=== PATIENT | male | born 1955 ===

== ENCOUNTER 2020-12-26 14:41 | Emergency (ER) | payer SELFPAY ==
[2020-12-26 15:12] VITALS: BP 132/70
--- NOTE | 2020-12-26 15:30 | Emergency Department Report ---
ED Dizziness HPI - General Chief Complaint: Dizziness Stated Complaint: BODY ACHES Time Seen by Provider: 12/26/20 15:17 Source: patient Mode of arrival: Ambulatory Limitations: No Limitations - History of Present Illness Initial Comments: 65 year old male with past medical hx of parkinsons and DM was brought to the ER today with his niece with complaints of dizziness. Niece states that [place] [facility] [place] She states that patient has been complaining about feeling dizzy for the past 2 to 3 weeks. She states that is worse when he stands. She states that he also been complaining of intermittent headache when he feels dizzy. She also states that has been complaining of "pain in his bones" more so in his lower back pain over the past 1 week. She denies any particular injury or trauma. His back pain is worse with Patient reports that he did have similar symptoms before in the past but was milder, he did [place] [facility] [place] medications and "a shot" after which improved but then he started again about a week ago. He reports numbness in his feet but this is from his diabetes. He states that his symptoms have intermittent episodes of incontinence but this has been since has been diabetic nothing worsens the back pain. He denies any worsening lower extremity numbness or tingling. He denies any associate abdominal pain, UTI symptoms, saddle anesthesia or focal weakness. They deny any vision changes or speech changes. He also denies any chest pain, SOB, nausea, vomiting, diarrhea. She denies any syncope or near syncope. The niece reports that she took patient to a regular primary care doctor when he first arrived. She states that they did do basic lab work, and found that his A1C was 9.1 and switched him from oral diabetic meds to insulin. He was also prescribed gabapentin, given a refill on his levodopa and also given Flexeril. She does admit that since patient has been taking the Flexeril she noticed as that is when he is in complaint of feeling the dizziness. MD Complaint: dizziness - Related Data Previous Rx's Medication Instructions Recorded Last Taken Type Acetaminophen [Acetaminophen 8 650 mg PO Q8H #30 tablet.er 12/26/20 Unknown Rx Hour] Allergies Allergy/AdvReac Type Severity Reaction Status Date / Time No Known Allergies Allergy Verified 12/26/20 15:13 ED Review of Systems ROS: Stated complaint: BODY ACHES Other details as noted in HPI Comment: All other systems reviewed and negative Constitutional: denies: chills, diaphoresis, fever, malaise, weakness Eyes: denies: eye pain, eye discharge, vision change ENT: denies: ear pain, throat pain, dental pain, hearing loss, epistaxis, congestion Respiratory: denies: cough, orthopnea, shortness of breath, wheezing Cardiovascular: denies: chest pain, palpitations Gastrointestinal: denies: abdominal pain, nausea, vomiting, diarrhea, constipation, hematemesis, hematochezia Genitourinary: denies: urgency, dysuria, frequency, hematuria, discharge, testicular pain, testicular mass Musculoskeletal: back pain. denies: joint swelling, arthralgia Neurological: headache, paresthesias, other (dizziness) Psychiatric: denies: anxiety, depression, auditory hallucinations, visual hallucinations, homicidal thoughts, suicidal thoughts Hematological/Lymphatic: denies: easy bleeding, easy bruising, swollen glands ED Past Medical Hx - Medications Home Medications: Home Medications Medication Instructions Recorded Confirmed Last Taken Type Acetaminophen [Acetaminophen 8 650 mg PO Q8H #30 tablet.er 12/26/20 Unknown Rx Hour] ED Physical Exam - General Limitations: No Limitations General appearance: alert, in no apparent distress - Head Head exam: Present: atraumatic, normocephalic, normal inspection - Eye Eye exam: Present: normal appearance, PERRL, EOMI Pupils: Present: normal accommodation - ENT ENT exam: Present: normal exam, mucous membranes moist, TM's normal bilaterally - Neck Neck exam: Present: normal inspection, full ROM. Absent: meningismus - Respiratory Respiratory exam: Present: normal lung sounds bilaterally. Absent: respiratory distress, wheezes, rales, rhonchi - Cardiovascular Cardiovascular Exam: Present: regular rate, normal rhythm, normal heart sounds - GI/Abdominal GI/Abdominal exam: Present: soft. Absent: distended, tenderness, guarding, rebound, rigid - Extremities Exam Extremities exam: Present: full ROM, normal capillary refill, other (coarse tremor noted to both hands more so in left hand ). Absent: pedal edema, joint swelling, calf tenderness - Back Exam Back exam: Present: full ROM (but with some pain ), vertebral tenderness (mild, lower back ) - Neurological Exam Neurological exam: Present: alert, oriented X3, CN II-XII intact. Absent: motor sensory deficit - Expanded Neurological Exam Expanded Patient oriented to: Present: person, place, time Speech: Present: fluid speech Cranial nerves: EOM's Intact: Normal, Gag Reflex: Normal Best Eye Response (Arcade): (4) open spontaneously Best Motor Response (Arcade): (6) obeys commands Best Verbal Response (Karsten): (5) oriented Karsten Total: 15 - Psychiatric Psychiatric exam: Present: normal affect, normal mood - Skin Skin exam: Present: intact ED Course Vital Signs 12/26/20 12/26/20 15:07 15:08 Pulse Rate 87 86 Blood Pressure 132/70 O2 Sat by Pulse 98 100 Oximetry ED Medical Decision Making - Lab Data Result diagrams: 12/26/20 15:38 12/26/20 15:38 - EKG Data EKG shows normal: sinus rhythm Rate: normal (86) - EKG Data Interpretation: nonspecific ST-T wave mely - Radiology Data Radiology results: report reviewed Patient: SARAI WILLS MR#: [id number] 4 : 1955 Acct:[id number] Age/Sex: 65 / M ADM Date: 12/26/20 Loc: ED Attending Dr: Ordering Physician: ABNER SÁNCHEZ Date of Service: 12/26/20 Procedure(s): CT head/brain wo con Accession Number(s): [id number] cc: ABNER SÁNCHEZ . CT head/brain wo con INDICATION / CLINICAL INFORMATION: 65 years Male; dizzy. TECHNIQUE: Routine CT head without contrast. All CT scans at this location are performed using CT dose reduction for ALARA by means of automated exposure control. COMPARISON: None. FINDINGS: BRAIN / INTRACRANIAL CONTENTS: No acute hemorrhage, mass effect, midline shift, hydrocephalus, or acute, large territorial infarct. Mild, diffuse cerebral atrophy. There are areas of decreased attenuation in the white matter of the cerebral hemispheres. These are nonspecific findings and may be related to microangiopathy (hypertension, diabetes, atherosclerosis), given the patient's age. It might be difficult to evaluate for small areas of ischemia without diffusion imaging by MRI. CRANIOCERVICAL JUNCTION: No significant abnormality. ORBITS: No significant abnormality of visualized orbits. SINUSES / MASTOIDS: Mild mucosal thickening in the ethmoids. ADDITIONAL FINDINGS: Atherosclerotic disease is seen in the anterior and posterior circulation. IMPRESSION: 1. No focal mass, hemorrhage, hydrocephalus, or acute, large territorial infarct. Signer Name: Frederic Felix MD, III Signed: 12/26/2020 4:12 PM Workstation Name: [id number] Transcribed By: HR Dictated By: Frederic Felix MD Electronically Authenticated By: Frederic Felix MD Signed Date/Time: 12/26/201611 DD/ 09 TD/TT: - Medical Decision Making Head CT shows nothing acute. All labs reviewed--CBC unremarkable, CMP shows a BUN of 46 and a creatinine of 1.5 and his blood sugar was 176 but otherwise unremarkable. Elevation in his BUN and creatinine could be related to some dehydration. Patient was given an bolus of IV fluids. His troponin was normal. EKG did not show STEMI, acute ischemic changes or significant dysrhythmias. His urinalysis does not suggest UTI. The patient is resting comfortably and feels better, is alert, talkative, interactive and in no distress. The repeat examination is unremarkable and benign. The patient is neurologically intact, has a normal mental status and is ambulatory (slow but normal gait) in the ER. Patient was also seen and evaluated by Dr. Leong, see his note for details. The history, exam, diagnostic testing and the patient's current condition does not suggest meningitis, stroke, sepsis, subarachnoid hemorrhage, intracranial bleed, encephalitis, ACS/MA, PE or other significant pathology that would warrant further testing, continued ED treatment, admission, neurological consultation or other specialist evaluation at this point. The vital signs have been stable. Suspect that the Flexeril coulld contributing to his dizziness recommend that he stops taking it, in the meantime patient be given referral information to neurology and also to primary care doctor for close follow-up. All labs results was discussed with patient and his niece. Discussed instructions were discussed with both of them. Recommended follow-up to discuss with both of them. They expressed understanding agree with plan. The patient condition is stable and appropriate for discharge. The patient will pursue further outpatient evaluation with the primary care physician or other designated or consulting physician as indicated in the discharge instructions. Critical care attestation.: If time is entered above; I have spent that time in minutes in the direct care of this critically ill patient, excluding procedure time. ED Disposition Clinical Impression: Dizziness, Dehydration, Low back pain Disposition: 01 HOME / SELF CARE / HOMELESS Is pt being admited?: No Does the pt Need Aspirin: No Condition: Stable Instructions: Dehydration, Adult, Viek-su-Nnry, Chronic Back Pain, [id number]-Jqcf, Dizziness, [id number] Additional Instructions: Recommend that he stop taking the Flexeril as this can cause dizziness, and also worsening Parkinson symptoms. Recommend taking Tylenol as prescribed to help with your back pain. I do recommend that you continue to follow-up with PCP, if you do not have a regular PCP, one will be provided to you on your discharge instructions. I also recommend that you follow-up with a neurologist listed on your discharge instructions for continued treatment of patient's Parkinson and also for further evaluation especially if his dizziness continues. Return to the ER if your symptoms changes or worsens in any way. Prescriptions: Acetaminophen [Acetaminophen 8 Hour] 650 mg PO Q8H #30 tablet.er Referrals: [facility] [Provider Group] - 3-5 Days PAULETTE BEATTY MD [Staff Physician] - 3-5 Days Time of Disposition: 19:26
[2020-12-26 15:55] LABS: Basophils # (Auto) 0.1 K/mm3 (0.0-0.1); Eosinophils # (Auto) 0.2 K/mm3 (0.0-0.4); Eosinophils % (Auto) 3.9 % (0.0-4.3); Hematocrit 36.2 % (35.5-45.6); Hemoglobin 11.4 gm/dl (11.8-15.2); Lymphocytes # (Auto) 1.4 K/mm3 (1.2-5.4); Lymphocytes % (Auto) 28.9 % (13.4-35.0); Mean Corpuscular HGB Conc 32 % (32-34); Mean Corpuscular Volume 99 fl (84-94); Monocytes # (Auto) 0.5 K/mm3 (0.0-0.8); Monocytes % (Auto) 10.7 % (0.0-7.3); Platelet Count 223 K/mm3 (140-440); Red Blood Count 3.67 M/mm3 (3.65-5.03); Red Cell Distribution Width 12.8 % (13.2-15.2)
--- NOTE | 2020-12-26 16:17 | Cat Scan Report ---
. CT head/brain wo con INDICATION / CLINICAL INFORMATION: 65 years Male; dizzy. TECHNIQUE: Routine CT head without contrast. All CT scans at this location are performed using CT dos e reduction for ALARA by means of automated exposure control. COMPARISON: None. FINDINGS: BRAIN / INTRACRANIAL CONTENTS: No acute hemorrhage, mass effect, midline shift, hydrocephalus, or acu te, large territorial infarct. Mild, diffuse cerebral atrophy. There are areas of decreased attenuation in the white matter of the cerebral hemispheres. These are n onspecific findings and may be related to microangiopathy (hypertension, diabetes, atherosclerosis), given the patient's age. It might be difficult to evaluate for small areas of ischemia without diffus ion imaging by MRI. CRANIOCERVICAL JUNCTION: No significant abnormality. ORBITS: No significant abnormality of visualized orbits. SINUSES / MASTOIDS: Mild mucosal thickening in the ethmoids. ADDITIONAL FINDINGS: Atherosclerotic disease is seen in the anterior and posterior circulation. IMPRESSION: 1. No focal mass, hemorrhage, hydrocephalus, or acute, large territorial infarct. Signer Name: Frederic Felix MD, III Signed: 12/26/2020 4:12 PM Workstation Name: [id number]
[2020-12-26 16:51] LABS: Alanine Aminotransferase 10 units/L (7-56); Albumin 3.9 g/dL (3.9-5); BUN/Creatinine Ratio 31; Blood Urea Nitrogen 46 mg/dL (9-20); Calcium 8.9 mg/dL (8.4-10.2); Hemolysis Index 14
[2020-12-26] MEDS ORDERED: SODIUM CHLORIDE 0.9% 1000 ML 1,000 ML IV ONE (17:01)
--- NOTE | 2020-12-26 17:21 | Event Note ---
Date of service: 12/26/20 Face to Face: For this encounter I have reviewed the [employer] documentation, treatment plan, medical decision making, and I had face to face time with this patient. Patient presented with family secondary to tremors involving the left hand and right hand. Patient had been diagnosed actually with Parkinson in [place]. The daughter was unaware of this. He did report some lightheadedness today. On exam, the patient does have some pill-rolling tremor involving both hands, left greater than right. There was no visible trauma. Mucous membranes are dry. IV fluids and labs have been reviewed and ordered. Patient was subsequently discharged.
[2020-12-26 18:44] LABS: Bilirubin,Urine NEG (Negative); Blood,Urine NEG (Negative); Color,Urine Yellow (Yellow); Mucus,Urine FEW /HPF; Protein,Urine <15 mg/dL mg/dL (Negative); Urobilinogen,Urine < 2.0 mg/dL (<2.0); WBC,Urine < 1.0 /HPF (0.0-6.0)
--- NOTE | 2020-12-28 08:39 | Electrocardiograph Report ---
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
== END 2020-12-26 19:30 | disposition home or self-care (01) ==
LOC: ED 14:41
DX: E86.0 Dehydration (principal); R42 Dizziness and giddiness; M54.50 Low back pain, unspecified
CPT/HCPCS: 36415; 70450; 80053; 81001; 84484; 85025; 93005; 96360; 99284; J7030; Q0162